=== PATIENT | male | born 1950 | race Caucasian/White ===

== ENCOUNTER 2017-02-13 23:03 | Emergency (ER) | payer MEDICARE, MEDICAID ==
[~2017-02-13] VITALS: Ht 176.5 cm; Wt 86.4 kg
[~2017-02-13 23:03] MED LIST: ASPI81TA3 PO; ATOR40TA68 PO; ATOR80TA18; EZET10TA3 PO; LANT3I SC; NOV; NOV SC; NOVO3I SC; NPH,100V10; ZEDIA
[2017-02-13 23:09] VITALS: Ht 176.5 cm; Wt 86.4 kg
[2017-02-14 00:10] LABS: BASOPHILS % 0.5 % (0.0-2.0); EOSINOPHILS # 0.1 10^3/ul (0.0-0.5); EOSINOPHILS % 2.2 % (0.0-7.0); HEMATOCRIT 43.6 % (42.0-52.0); HEMOGLOBIN 14.3 g/dl (14.0-18.0); LYMPHOCYTES % 33.2 % (15.0-51.0); MEAN CORPUSCULAR HEMOGLOBIN 29.7 pg (29.0-33.0); MEAN CORPUSCULAR HGB CONC 32.8 g/dl (32.0-37.0); MEAN CORPUSCULAR VOLUME 90.6 fl (82.0-101.0); MEAN PLATELET VOLUME 12.1 fl (7.4-10.4); MONOCYTE # 0.8 10^3/ul (0.3-0.9); NEUTROPHILS % 50.9 % (39.0-77.0); PLATELET COUNT 164 10^3/UL (140-415); RED BLOOD COUNT 4.81 10^6/ul (4.70-6.10); RED CELL DISTRIBUTION WIDTH 12.5 % (11.5-14.5)
[2017-02-14 00:31] LABS: ADD UMIC YES; UR ASCORBIC ACID NEGATIVE (NEGATIVE); UR BACTERIA FEW /HPF (NONE SEEN); UR BILIRUBIN (Dip) NEGATIVE (NEGATIVE); UR BLOOD (Dip) 3+ mg/dL (NEGATIVE); UR CLARITY TURBID (CLEAR); UR COLOR RED (YELLOW); UR GLUCOSE (Dip) NEGATIVE (NEGATIVE); UR KETONES (Dip) NEGATIVE (NEGATIVE); UR LEUKOCYTE ESTERASE (Dip) NEGATIVE Leu/ul (NEGATIVE); UR MUCUS MODERATE /HPF (NONE SEEN); UR NITRITE (Dip) NEGATIVE (NEGATIVE); UR RBC > 182 /HPF (0-5); UR SPECIFIC GRAVITY (Dip) 1.026 (1.003-1.030); UR TOTAL PROTEIN (Dip) 2+ mg/dl (NEGATIVE); UR UROBILINOGEN (Dip) 1+ mg/dL (NEGATIVE)
[2017-02-14 00:47] LABS: BILIRUBIN,INDIRECT 0.3 mg/dl (0-1.1); BILIRUBIN,TOTAL 0.3 mg/dl (0.2-1.3); CALCIUM 9.6 mg/dl (8.4-10.2); POTASSIUM 3.8 mmol/L (3.5-5.1)
[2017-02-14 00:48] LABS: ALBUMIN 4.6 g/dl (3.3-4.9); ALBUMIN/GLOBULIN RATIO 1.53; TOTAL PROTEIN 7.6 g/dl (6.1-8.1)
--- NOTE | 2017-02-14 01:00 | RADRPT ---
AMENDMENT: 02/25/2017 10:46:04 PM Hailey Valladares M.D One or more of the following dose reduction techniques were used: - Automated exposure control. - Adjustment of the mA and/or kV according to patient size. - Use of iterative reconstruction technique. PROCEDURE: CT ABDOMEN AND PELVIS WITHOUT CONTRAST: CLINICAL INDICATION: 66 years of age, male , abdominal pain. COMPARISON: None available. TECHNIQUE: CT of the abdomen and pelvis was performed without intravenous contrast. Oral contrast wa s not administered prior to the examination. Coronal and sagittal reformatted images were obtained from the axial source images. Images were revi ewed on a high-resolution PACS workstation. Dose information: Based on a 32 cm phantom, the estimated radiation dose (CTDI vol mGy) for each ser ies in this exam is 13.1. The estimated cumulative dose (DLP mGy-cm) is 867. FINDINGS: In the absence of intravenous contrast, the study constitutes a limited assessment of the solid orga ns, bowel and vessels. LUNG BASES: Four-vessel coronary artery calcification. ABDOMEN/PELVIS: Liver: Normal noncontrast appearance. Gallbladder: Normal noncontrast appearance. Bile ducts: No intrahepatic or extrahepatic biliary duct dilatation. Spleen: Normal noncontrast appearance. Pancreas: Normal noncontrast appearance. Adrenal glands: Normal noncontrast appearance. Kidneys and ureters: 1.1 cm exophytic hypodensity left kidney is too small to characterize (3/64). K idneys otherwise appear normal. Negative for urinary calculi or hydronephrosis. Aorta and IVC: Atherosclerosis aorta and iliac vessels. No aneurysm. Lymph nodes: Small retroperitoneal and mesenteric lymph nodes are not enlarged by size criteria. Gastrointestinal tract: Normal noncontrast appearance. Appendix: Normal Bladder: Partially filled. Pelvic Organs: Enlarged prostate gland measuring 6 cm in height indents the bladder base. Seminal v esicles are symmetrical. Peritoneal cavity: No free fluid or free intraperitoneal air. Abdominal wall: Indirect fat containing right inguinal hernia. BONES: Musculoskeletal: Degenerative changes in spine. Mild height loss at L1 appears chronic. No suspici ous bone lesions. IMPRESSION: Enlarged prostate gland. Bladder is partially filled. Negative for urinary calculi or hydronephrosis. RPTAT: HCTS Sanjay Valladares, Physician Date Time Electronically viewed and signed by Sanjay Valladares, Physician on 02/25/2017 22:47 CS/
--- NOTE | 2017-02-14 01:10 | ERD ---
ER Documentation Chief Complaint Date/Time DATE: 02/14/17 TIME: 01:04 Chief Complaint BLD IN URINE X1, DENIES PAIN, C/O RT GROIN PAIN. HX HERNIA. HPI This a 66-year-old male who presents the emergency department today complaining of significant amount of blood in his urine that started this evening. Patient states that he has a history of a hernia that has not been repaired and thinks that maybe his hernia "burst". Denies any dysuria, back pain, fevers or chills , loss of bowel or bladder control. Denies any history of kidney stones. Denies any testicular pain ROS All systems reviewed and are negative except as per history of present illness. Medications Home Meds Active Scripts Ibuprofen* (Motrin*) 600 Mg Tab, 600 MG PO Q6, #30 TAB Prov:YANNICK MCQUEEN PA-C 02/14/17 Acetaminophen* (Tylophen*) 500 Mg Capsule, 1 CAP PO Q6H Y for PAIN AND OR ELEVATED TEMP, #30 CAP Prov:YANNICK MCQUEEN PA-C 02/14/17 Aspirin* (Aspirin* Chew) 81 Mg Tab.chew, 81 MG PO DAILY for 30 Days, TAB.CHEW Prov:DELON AIKEN MD 01/07/16 Reported Medications Aspirin* (Aspirin* Chew) 81 Mg Tab.chew, 81 MG PO DAILY, TAB.CHEW 01/07/16 Insulin Aspart* (Novolog Insulin Vial*) 100 U/Ml Vial, 7 UNITS SC WITH MEALS, VIAL 01/07/16 Insulin Glargine* (Lantus*) 100 Unit/Ml Soln, 34 UNIT SC QHS, #1 VIAL 01/07/16 Ezetimibe* (Zetia*) 10 Mg Tablet, 10 MG PO HS, TAB 01/07/16 Atorvastatin* (Atorvastatin*) 40 Mg Tablet, 40 MG PO QHS, #30 TAB 01/07/16 Allergies Allergies: Coded Allergies: sulfamethoxazole (Verified Allergy, Severe, RASH, 02/13/17) trimethoprim (Verified Allergy, Severe, RASH, 02/13/17) PMhx/Soc 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 Neck: Full range of motion..~ No meningismus. Resp: Clear to auscultation bilaterally Cardio: Regular rate and rhythm, no murmurs Abd: Soft, nonspecific right lower quadrant tenderness non distended. Normal bowel sounds Skin: No petechiae or rashes Back: No midline or flank tenderness Ext: No cyanosis, or edema Neur: Awake and alert Psych: Normal Mood and Affect Result Diagram: 02/14/17 0000 02/14/17 0000 Results 24 hrs Laboratory Tests Test 02/13/17 23:55 02/14/17 00:00 Urine Color RED Urine Clarity TURBID Urine pH 5.0 Urine Specific [place] 1.026 Urine Ketones NEGATIVEmg/dL Urine Nitrite NEGATIVEmg/dL Urine Bilirubin NEGATIVEmg/dL Urine Urobilinogen 1+mg/dL Urine Leukocyte Esterase NEGATIVELeu/ul Urine Microscopic RBC > 182/HPF Urine Microscopic WBC 12/HPF Urine Bacteria FEW/HPF Urine Mucus MODERATE/HPF Urine Hemoglobin 3+mg/dL Urine Glucose NEGATIVEmg/dL Urine Total Protein 2+mg/dl White Blood Count 6.010^3/ul Red Blood Count 4.8110^6/ul Hemoglobin 14.3g/dl Hematocrit 43.6% Mean Corpuscular Volume 90.6fl Mean Corpuscular Hemoglobin 29.7pg Mean Corpuscular Hemoglobin Concent 32.8g/dl Red Cell Distribution Width 12.5% Platelet Count 96514^3/UL Mean Platelet Volume 12.1fl Neutrophils % 50.9% Lymphocytes % 33.2% Monocytes % 13.0% Eosinophils % 2.2% Basophils % 0.5% Nucleated Red Blood Cells % 0.0/100WBC Neutrophils # (Manual) 310^3/ul Lymphocytes # 2.010^3/ul Monocytes # 0.810^3/ul Eosinophils # 0.110^3/ul Basophils # 0.010^3/ul Nucleated Red Blood Cells # 0.010^3/ul Sodium Level 146mmol/L Potassium Level 3.8mmol/L Chloride Level 99mmol/L Carbon Dioxide Level 30mmol/L Anion Gap 21 Blood Urea Nitrogen 21mg/dl Creatinine 1.00mg/dl Glucose Level 97mg/dl Calcium Level 9.6mg/dl Total Bilirubin 0.3mg/dl Direct Bilirubin 0.00mg/dl Indirect Bilirubin 0.3mg/dl Aspartate Amino Transf (AST/SGOT) 45IU/L Alanine Aminotransferase (ALT/SGPT) 50IU/L Alkaline Phosphatase 91IU/L Total Protein 7.6g/dl Albumin 4.6g/dl Globulin 3.00g/dl Albumin/Globulin Ratio 1.53 Lipase 134U/L DIAGNOSTIC IMAGING REPORT Patient: AGUSTÍN SEQUEIRA : 1950 Age: 66 Sex: M MR #: [id number] DOS: 02/13/17 2348 Ordering MD: YANNICK MCQUEEN PA-C Location: [facility] Room/Bed: PROCEDURE: CT ABDOMEN AND PELVIS WITHOUT CONTRAST: CLINICAL INDICATION: 66 years of age, male , abdominal pain. COMPARISON: None available. TECHNIQUE: CT of the abdomen and pelvis was performed without intravenous contrast. Oral contrast was not administered prior to the examination. Coronal and sagittal reformatted images were obtained from the axial source images. Images were reviewed on a high-resolution PACS workstation. Dose information: Based on a 32 cm phantom, the estimated radiation dose (CTDI vol mGy) for each series in this exam is 13.1. The estimated cumulative dose ( DLP mGy-cm) is 867. FINDINGS: In the absence of intravenous contrast, the study constitutes a limited assessment of the solid organs, bowel and vessels. LUNG BASES: Four-vessel coronary artery calcification. ABDOMEN/PELVIS: Liver: Normal noncontrast appearance. Gallbladder: Normal noncontrast appearance. Bile ducts: No intrahepatic or extrahepatic biliary duct dilatation. Spleen: Normal noncontrast appearance. Pancreas: Normal noncontrast appearance. Adrenal glands: Normal noncontrast appearance. Kidneys and ureters: 1.1 cm exophytic hypodensity left kidney is too small to characterize (3/64). Kidneys otherwise appear normal. Negative for urinary calculi or hydronephrosis. Aorta and IVC: Atherosclerosis aorta and iliac vessels. No aneurysm. Lymph nodes: Small retroperitoneal and mesenteric lymph nodes are not enlarged by size criteria. Gastrointestinal tract: Normal noncontrast appearance. Appendix: Normal Bladder: Partially filled. Pelvic Organs: Enlarged prostate gland measuring 6 cm in height indents the bladder base. Seminal vesicles are symmetrical. Peritoneal cavity: No free fluid or free intraperitoneal air. Abdominal wall: Indirect fat containing right inguinal hernia. BONES: Musculoskeletal: Degenerative changes in spine. Mild height loss at L1 appears chronic. No suspicious bone lesions. IMPRESSION: Enlarged prostate gland. Bladder is partially filled. Negative for urinary calculi or hydronephrosis. RPTAT: HCTS Physician Carlos Date Time Electronically viewed and signed by Sanjay Valladares Physician on 02/14/2017 00: 59 CS/ CC: YANNICK MCQUEEN PA-C Procedures/[facility] This 66-year-old male who presents the emergency department today complaining of materia when he urinated this evening. Patient does have gross hematuria upon visualization of his urine sample. Patient also had some right lower quadrant tenderness on physical exam and therefore I did obtain images as well as laboratory work Laboratory workup shows no elevated white blood cell count. He is not anemic. Platelets are within normal limits. Sodium is mildly elevated otherwise electrolytes are within normal limits. Glucose is within normal limits. Liver enzymes are within normal limits. Lipase is within normal limits. UA is negative for infection. There are greater than [address] microscopic red [address] abdomen pelvis noncontrast shows an enlarged prostate gland measuring 6 cm in height and indents the bladder base. Seminal vesicles are symmetrical. There is no free fluid or free air. There is an indirect fat-containing right inguinal hernia. There is no evidence for urinary calculi or hydronephrosis. GI tract is normal in appearance. Gallbladder is normal. Appendix is normal. Patient's symptoms at this time is consistent with hematuria. Most likely caused by his enlarged prostate gland. I have explained this to the patient. I explained to the patient that he does need to follow-up with his primary care doctor for referral to urology specialist. Patient did indicate that he saw Dr. Jacobo in July or August and was told that his prostate was okay. I have instructed him that he does need to follow back up with him. I have also given him a list of resources or other urologist if he is not able to get in to see Dr. Jacobo. Patient denies any significant amount of pain and therefore he declined pain medication here in the emergency department. Patient be given a prescription for Tylenol Motrin for home At this time the patient is stable for discharge and outpatient management. Patient should follow up with their PCP in the next 1-2 days. They may return to the emergency department sooner for any persistent or worsening of symptoms. Patient understood and agreed with the plan. Departure Diagnosis: Primary Impression: Hematuria Additional Impression: Abdominal pain Abdominal location: right lower quadrant Qualified Code: R10.31 - Right lower quadrant abdominal pain Condition: Fair YANNICK MCQUEEN PA-C Feb 14, 2017 01:10
[2017-02-14] MEDS ORDERED: ACET500C5 PO (01:16)
[2017-02-14] MEDS ORDERED: IBUP-1542 PO (01:17)
== END 2017-02-14 01:18 | disposition home or self-care (01) ==
LOC: FTE 23:03
DX: R31.9 Hematuria, unspecified (principal); R10.31 Right lower quadrant pain; E11.9 Type 2 diabetes mellitus without complications; Z79.4 Long term (current) use of insulin; Z79.82 Long term (current) use of aspirin
CPT/HCPCS: 36415; 74176; 80053; 81001; 83690; 85025